=== PATIENT | male | born 1950 | race Caucasian/White ===

== ENCOUNTER 2021-02-17 10:17 | Outpatient (CLI) | payer MEDICARE, BC, SELFPAY ==
[2021-02-17 12:21] LABS: PSA,Total - Annual Screen 1.36 ng/mL (0.00-4.00)
== END 2021-02-17 23:59 | disposition short-term general hospital (02) ==
LOC: LAB 10:30
PROVIDERS: PCP Family Medicine; Visit Provider Urology
DX: Z12.5 Encounter for screening for malignant neoplasm of prostate (principal)
CPT/HCPCS: 36415; 84153; G0103

== ENCOUNTER → 2022-07-20 | Outpatient (CLI) | payer MEDICARE, BC, SELFPAY ==
--- NOTE | 2022-07-20 12:49 | CT_ITS ---
STUDY: CT ABDOMEN AND PELVIS WITHOUT CONTRAST REASON FOR EXAM: Male, 71 years old. CALCULUS OF URETER RADIATION DOSAGE (If Supplied By Facility): CTDIvol = ( 11.13 ) mGy, DLP = ( 512.27 ) mGycm TECHNIQUE: Transaxial images were obtained from the dome of the diaphragm to the symphysis pubis without oral contrast, and without intravenous contrast. Sagittal and coronal images were reconstructed. Individualized dose optimization techniques were used for this CT. COMPARISON: None. FINDINGS: Mild increased interstitial markings at the lung bases suggestive of linear atelectasis and/or scarring. Coronary artery calcification. Normal liver. Normal gallbladder and extrahepatic biliary system. Normal spleen. Normal pancreas. Normal bilateral adrenal glands. Normal right kidney. Questionable tiny calculus at the right ureterovesical junction. Normal left kidney. Normal visualized stomach. Normal small intestine. There are multiple colonic diverticula consistent with diverticulosis. The appendix is visualized and appears normal. There is diffuse atherosclerotic calcification of the abdominal aorta and its major visceral branches, without a demonstrated aneurysm. Normal inferior vena cava. Nonspecific increased markings in the mesenteric fat at the level of the root of the mesentery. Tiny lymph nodes are seen. Normal urinary bladder. There is enlargement of the prostate gland. It measures 3.7 cm x 4.7 cm. Central prostatic calcifications are seen. Normal abdominal wall. There are diffuse degenerative changes of the visualized lumbar spine. CT/Abdomen/Pelvis without Cont IMPRESSION: Questionable tiny calculus at the right ureterovesical junction. Sigmoid diverticulosis. Increased markings within the mesenteric fat at the level of the root of the mesentery. This is nonspecific. Electronically Signed: Emil Corona MD at 13:35 EDT ,
== END | disposition home or self-care (01) ==
LOC: CT 12:43
PROVIDERS: PCP Family Medicine; Referring Provider Urology; Visit Provider Urology
DX: N20.1 Calculus of ureter (principal)
CPT/HCPCS: 74176

== ENCOUNTER → 2022-07-24 | Outpatient (CLI) | payer MEDICARE, BC, SELFPAY | END | disposition home or self-care (01) | PROVIDERS: PCP Family Medicine; Visit Provider Urology | DX: Z87.442 Personal history of urinary calculi (principal) | CPT/HCPCS: 82360 ==

== ENCOUNTER → 2023-07-17 | Outpatient (CLI) | payer MEDICARE, BC, SELFPAY ==
[2023-07-17 11:37] LABS: PSA,Total - Annual Screen 1.53 ng/mL (0.00-4.00)
== END | disposition home or self-care (01) ==
PROVIDERS: PCP Family Medicine; Referring Provider Urology; Visit Provider Urology
DX: Z12.5 Encounter for screening for malignant neoplasm of prostate (principal)
CPT/HCPCS: 36415; 84153; G0103

== ENCOUNTER → 2024-07-16 | Outpatient (CLI) | payer MEDICARE, BC, SELFPAY ==
--- NOTE | 2024-07-16 13:17 | RAD_ITS ---
PROCEDURE: CERV SPINE 2 OR 3 VIEWS 07/16/2024 REASON FOR EXAM: SPONDYLOSIS WITHOUT MYELOPATHY OR RADICULOPATHY TECHNIQUE: 2 views of the cervical spine. COMPARISON: None. FINDINGS: There are no compression fractures or subluxations. There is reversal of the normal cervical lordosis. There is degenerative disc disease, C3-4 through C6-7 with narrowing of the disc spaces and marginal osteophytes. There is no significant facet arthropathy or spondylolisthesis. The paravertebral soft tissues are unremarkable. RAD/Cerv Spine 2 or 3 Views IMPRESSION: Mild multilevel degenerative disc disease with cervical spasm. Reading Location: [place] [id number]
== END | disposition home or self-care (01) ==
LOC: RAD 13:16
PROVIDERS: PCP Family Medicine; Referring Provider Anesthesiology Pain Medicine; Visit Provider Anesthesiology Pain Medicine
DX: M47.812 Spondylosis without myelopathy or radiculopathy, cervical region (principal)
CPT/HCPCS: 72040

== ENCOUNTER → 2024-07-17 | Outpatient (CLI) | payer MEDICARE, BC, SELFPAY ==
[2024-07-17 13:15] LABS: PSA,Total - Annual Screen 1.42 ng/mL (0.02-4.00)
== END | disposition home or self-care (01) ==
LOC: LAB 11:40
PROVIDERS: PCP Family Medicine; Referring Provider Nurse Practitioner; Visit Provider Nurse Practitioner
DX: Z12.5 Encounter for screening for malignant neoplasm of prostate (principal)
CPT/HCPCS: 36415; 84153; G0103

== ENCOUNTER → 2024-09-19 | Outpatient (CLI) | payer MEDICARE, BC, SELFPAY ==
--- NOTE | 2024-09-19 09:42 | MRI_ITS ---
PROCEDURE: SPINE CERVICAL (ROUTINE) 09/19/2024 REASON FOR EXAM: PAIN, KYPHOSIS WORSENING X10 WEEKS TECHNIQUE: SPINE CERVICAL (ROUTINE) Multiplanar and multisequence images were obtained without IV contrast administration. FINDINGS: Normal cervical alignment. Normal vertebral body height. No compression deformity or subluxation. No marrow abnormality. No marrow edema. No paravertebral mass lesion. Unfortunately, the T2 weighted axial images C2-3 is unremarkable. At C3-4, there is no central or foraminal stenosis. At C4-5, there is mild left C5 foraminal narrowing from uncinate spurring. At C5-6, there is no central stenosis. At C6-7, bilateral foraminal stenosis from uncinate spurring is present C7-T1 is unremarkable MRI/Spine Cervical (Routine) IMPRESSION: T2 weighted images limited by artifact. Mild degenerative changes with foramin al narrowing. No spinal cord abnormality. Reading [facility]
== END | disposition home or self-care (01) ==
LOC: MRI 09:38
PROVIDERS: PCP Family Medicine; Referring Provider Student in an Organized Health Care Education/Training Program; Visit Provider Student in an Organized Health Care Education/Training Program
DX: M54.2 Cervicalgia (principal); M40.202 Unspecified kyphosis, cervical region
CPT/HCPCS: 72141

== ENCOUNTER 2024-09-30 10:15 | Outpatient (RCR) | payer MEDICARE, BC, SELFPAY ==
[2024-09-23 10:18] VITALS: BP 146/78; PULSE 57; RESP 18; TEMP 36.4; BMI 29.7
--- NOTE | 2024-09-23 13:13 | HP.PCM_ITS ---
History of Present Illness Date of Service: 09/23/24 [facility], [facility] Medical History (Updated 09/23/24 @ 13:[address] Alpesh Echavarria MD) Non-pressure chronic ulcer of buttock with fat layer exposed Home Medications Medication Instructions Recorded Last Taken Type aspirin 81 mg tablet 81 mg PO QDAY 09/17/24 Unkno wn History atorvastatin 80 mg tablet (Lipitor) 80 mg PO QDAY 09/05 04/29 Unknown History bumetanide 1 mg tablet 1 mg PO BID 09/17/24 Unknown History cephalexin 250 mg capsule 250 mg PO BID 09/17/24 Unkno wn History clopidogrel 75 mg tablet (Plavix) 75 mg PO QDAY Unknown History fenofibrate 160 mg tablet 160 mg PO QDAY 09/17/24 Unkn own History mexiletine 150 mg capsule 450 mg PO Q12H 09/17/24 Unkn own History niacin 50 mg tablet 50 mg PO QDAY 09/17/24 Unkno wn History omeprazole magnesium 20 mg 20 mg PO QDAY 09/17/24 Unkn own History capsule,delayed release sotalol 80 mg tablet 80 mg PO BID 09/17/24 Unknow n History tamsulosin 0.4 mg capsule (Flomax) 0.4 mg PO QDAY 09/05 04/29 Unknown History Allergy/AdvReac Type Severity Reaction Status Date / Time No Known Allergies Allergy Unverified 09/17/24 13:32 Social History (Updated 09/17/24 @ 13:43 by Florina Warren) Smoking Status: Former smoker alcohol intake: current alcohol intake frequency: a few times a week Alcohol type: beer substance use type: does not use Vital Signs Vital Signs Vital Signs: 09/23/24 10:18 Temperature 97.5 F L Temperature Source Temporal Pulse Rate 57 L Respiratory Rate 18 Blood Pressure 146/78 H Blood Pressure Mean 100 Blood Pressure Source Monitor Blood Pressure Position Sitting Blood Pressure Location Left Arm Oxygen Delivery Method Room Air Weight Weight: 168 lb Body Mass Index (BMI) 29.7 Debridement Note Debridement Note Post-Debridement Measurements and Additional Note: Post-Debridement Measurements/Treatment WC - Nurse 1 - General Ulcer Assessment Start: 09/23/24 10:15 Freq: Status: Active Protocol: KAREEM Activity Type Activity Date Activity User E-sign Co-sign Detail Recorded Client Recorded Date Recorded By Document 09/23/24 10:18 [id number] 09/23/24 10:35 09/23/24 10:18 WC - Today's Visit Information Type of service Initial Visit Arrival Mode Ambulatory Patient Identification Verified (Name & Yes ) Finger Stick Blood Sugar(mg/dl) (if 125 indicated): Blood Sugar Stated by Patient Height and Weight Height 5 ft 3 in Weight 168 lb Weight in Pounds 168.0 lbs Body Mass Index (BMI) 29.7 BMI Classification Overweight Vital Signs Temperature (97.8 F-99.1 F) 97.5 F L Temperature Source Temporal Pulse Rate (60-100) 57 L Pulse Location Monitor Respiratory Rate (12-18) 18 Respiratory rate source Observation Oxygen Delivery Method Room Air Blood Pressure (90/60-120/80) 146/78 H Blood Pressure Mean 100 Source Monitor Position Sitting Blood Pressure Location Left Arm History Since Last Visit- (Skip if this is Patient's initial visit) Left Footwear Regular Shoe Right Footwear Regular Shoe Pain Scale: 0-10 Numeric Is Patient Pain Free? No R BUTTOCK -Description Sharp,Aching -Alleviating Factors/Interventions Medication, Medicate when due Communication Assessment Preferred language Greek Steam Shovel Operating Engineer Required No Able to Read Yes Able to Write Yes Communication Tools None Right Hearing Abillity Normal Left Hearing Abillity Normal Visual Assistive Devices None Teaching Assessment Preferences Verbal,Written, Demonstration Barriers to Learning None Readiness To Learn Excellent Willingness to Engage in Self Management High Activies Readiness to Engage in Self Management High Activities Anxiety Level Calm Cooperation Cooperative Perception Coherent Interest in Health Problem Asks Questions Education Importance Acknowledges Need Does Patient Smoke tobacco or other No substances Smoking Status Former smoker Is Patient Diabetic Yes Functional Assessment Recent Decline in Ability to Perform Denies Any Declines Culture/Oriental Orthodox/Operater Cultural/Oriental Orthodox Needs that may affect No Treatment Plan Would you allow our hospital spray booth operator to No meet you for the purpose of spiritual/ emotional support? Operater to contact place of alevism No WC - Nurse 1 - General Ulcer Measurement Start: 09/23/24 10:15 Freq: Status: Active Protocol: Activity Type Activity Date Activity User E-sign Co-sign Detail Recorded Client Recorded Date Recorded By Document 09/23/24 10:18 [id number] 09/23/24 10:35 09/23/24 10:18 Wound Center Nurse 1 #1 R BUTTOCK -Current Size (cm) - Length 0.1 -Current Size (cm) - Width 0.1 -Current Size (cm) - Depth 0 -Total Square Cm 0.01 -Date of Last Picture (Recall this 09/23/24 field) -Exudate Amt None Present -Texture (Letha-wound Skin Appearance) Assessed -Moisture (Letha-wound Skin Appearance) Assessed,Dry/ Scaly -Color (Letha-wound Skin Appearance) Assessed -Temperature (Letha-wound Skin No Abnormality Appearance) (Pt Warm) -Tenderness on Palpation (Letha-wound No Skin Appearance) -Ulcer Cleansing Rinsed/ Irrigated with Saline -Foul Odor after Cleansing No -Anesthetic Used 5% Lidocaine Gel - Nurse 2 - General Ulcer CM Notes Start: 09/23/24 10:15 Freq: Status: Active Protocol: Activity Type Activity Date Activity User E-sign Co-sign Detail Recorded Client Recorded Date Recorded By Document 09/23/24 11:07 [facility] [id number] 09/23/24 11:19 [facility] 09/23/24 11:07 Wound Center Nurse 2 -Time 11:10 -Correct Patient Yes -Correct Side, Site, Position Yes -Correct Procedure Yes -Procedure Performed Yes -Type of Procedure Debridement -Clinical Debridement Subcutaneous -Tissue Removed Subcutaneous -Post Debridement (cm) - Length 0.3 -Post Debridement (cm) - Width 0.2 -Post Debridement (cm) - Depth 0.2 -Total Square (Post) (cm) 0.06 -Area of Debridement (cm) - Length 0.3 -Area of Debridement (cm) - Width 0.2 -Total Square (Area) (cm) 0.06 -Tunneling No -Undermining/Tunneling No -Circular Undermining No -Wound/Ulcer Outcome Not Healed -Ulcer Cleansing Rinsed/ Irrigated with Saline -Bleeding Controlled with Pressure -Treatment Response Procedure Tolerated Well -Debridement - Subq, 1st 20sq cm Yes Pain Scale: 0-10 Numeric Is Patient Pain Free? Yes - Nurse 3 - General Ulcer D/C NN Start: 09/23/24 10:15 Freq: Status: Active Protocol: Activity Type Activity Date Activity User E-sign Co-sign Detail Recorded Client Recorded Date Recorded By Document 09/23/24 11:30 RB [id number] 09/23/24 11:31 RB 09/23/24 11:30 Wound Care Center Nurse 3 #1 R BUTTOCK -Ulcer Cleansing Rinsed/ Irrigated with Saline -Primary Dressing Applied C Hydrogel, Silicone Border Foam 4x4 -Hydrogel 1 -Silicone Border Foam 4x4 3 Treatment Response Procedure Tolerated Well Pain Scale: 0-10 Numeric Is Patient Pain Free? Yes WC - Visit Discharge Discharge Condition Stable Ambulatory Status Ambulatory Transportation Private Auto Medication Reconcilliation completed & No provided to patient/care provider Clinical Summary of Care Provided Yes Assessment/Plan Assessment/Plan (1) Non-pressure chronic ulcer of buttock with fat layer exposed: CODE(S): L98.412 - Non-pressure chronic ulcer of buttock with fat layer exposed
--- NOTE | 2024-09-24 12:05 | WC ---
PHOTO-RIGHT BUTTOCK 09/23/24
--- NOTE | 2024-09-25 11:25 | HP.PCM_ITS ---
History of Present Illness Date of Service: 09/23/24 Chief Complaint: Wound of the wound of the right upper, medial buttock History of Wound: This is a 74-year-old male who presented with an open ulceration on the medial aspect of the right upper buttock. The ulceration had been present for several months. According to the patient, it intermittently drains, though the patient is vague about the nature of the drainage. It intermittently forms a scab, which subsequently results in further drainage. The patient claims that the site is painful. The patient has been treated with topical antifungal agents as well as mupirocin 2% ointment topically. The patient is known to be diabetic. He suffers from multiple pre-existing medical problems, including diabetes mellitus, coronary artery disease, hyperlipidemia, hypertension, hypothyroidism, and chronic kidney disease. He is not currently a smoker. He claims that his diabetes is well-controlled, and he is not on insulin. 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 Home Medications Medication Instructions Recorded Last Taken Type aspirin 81 mg tablet 81 mg PO QDAY 09/17/24 Unkno wn History atorvastatin 80 mg tablet (Lipitor) 80 mg PO QDAY 09/05 04/29 Unknown History bumetanide 1 mg tablet 1 mg PO BID 09/17/24 Unknown History cephalexin 250 mg capsule 250 mg PO BID 09/17/24 Unkno wn History clopidogrel 75 mg tablet (Plavix) 75 mg PO QDAY Unknown History fenofibrate 160 mg tablet 160 mg PO QDAY 09/17/24 Unkn own History mexiletine 150 mg capsule 450 mg PO Q12H 09/17/24 Unkn own History niacin 50 mg tablet 50 mg PO QDAY 09/17/24 Unkno wn History omeprazole magnesium 20 mg 20 mg PO QDAY 09/17/24 Unkn own History capsule,delayed release sotalol 80 mg tablet 80 mg PO BID 09/17/24 Unknow n History tamsulosin 0.4 mg capsule (Flomax) 0.4 mg PO QDAY 09/05 04/29 Unknown History Allergy/AdvReac Type Severity Reaction Status Date / Time No Known Allergies Allergy Unverified 09/17/24 13:32 Surgical History History of coronary artery bypass graft History of heart artery stent Social History Smoking Status: Former smoker alcohol intake: current alcohol intake frequency: a few times a week Alcohol type: beer substance use type: does not use Vital Signs Vital Signs Vital Signs: Weight Weight: 168 lb Body Mass Index (BMI) 29.7 Physical Exam Const alert, oriented x3, no apparent distress, average body habitus, no limitations and well nourished Constitutional Narrative: The patient's BMI is 29.8. General Appearance: cooperative, comfortable and well developed Orientation / Consciousness: awake, oriented to person, oriented to place and oriented to time Exam Limitations: no limitations HEENT normocephalic and head/scalp atraumatic Head and Scalp: normal to inspection, normocephalic and atraumatic Face and Sinus: normal facial exam Nose: external nose normal External Ear: external ears normal Eyes PERRL and EOMs intact bilaterally General Eye: normal appearance of both eyes Resp normal respiratory effort, normal air movement, no retractions and no use of accessory muscles Effort and Inspection: able to speak in complete sentences Extremity no calf tenderness General Extremity: Negative for clubbing or cyanosis Skin Wound Narrative: An open ulceration is noted on the patient's right upper, medial buttock. It is full-thickness in nature, extending through all layers of the dermis and into subcutaneous tissues. With a suspicion of possible pilonidal sinus origins, or a perianal fistula opening, a metal probe was used to gently probe the ulceration to determine whether there appeared to be a tract extending in any direction, which would support the suspected diagnosis. However, no such tract was apparent. The base of the ulceration was noted to be pink, with a moderate amount of slough and devitalized tissue. Dimensions are documented elsewhere. There is no sign of infection or cellulitis. Neuro oriented x3, CN's II-XII intact bilaterally, moves all extremities, no focal motor deficits and no sensory deficits noted Sensorium / Orientation: awake, alert, oriented to person, oriented to place and oriented to time Speech: speech normal Psych Appearance: grossly normal and appropriate Attitude: calm Activity / Motor Behavior: appropriate eye contact Speech: normal speech Mood & Affect: euthymic mood Thought Process: normal thought process Thought Content: normal thought content Attention / Concentration: attention grossly intact Debridement Note Debridement Note Wound debrided: Right upper, medial buttock ulceration Laterality: Right Type of Debridement: Excisional debridement Anesthesia Used: 5% Lidocaine Gel Depth: Down to and including healthy tissue and in the subcutaneous layer Percentage of wound debrided: 100 Instrument Used: 3mm curette Tissue Removed: Slough and nonviable tissue Severity: Fat Layer Exposed Amount of bleeding with debridement: Mild Bleeding Controlled with: Compression and gauze Patient tolerated procedure: Patient tolerated procedure well Post-Debridement Measurements and Additional Note: Post-Debridement Measurements/Treatment - Nurse 1 - General Ulcer Assessment Start: 09/23/24 10:15 Freq: Status: Active Protocol: KAREEM Activity Type Activity Date Activity User E-sign Co-sign Detail Recorded Client Recorded Date Recorded By Document 09/23/24 10:18 DIDI [id number] 09/23/24 10:35 KW 09/23/24 10:18 - Today's Visit Information Type of service Initial Visit Arrival Mode Ambulatory Patient Identification Verified (Name & Yes ) Finger Stick Blood Sugar(mg/dl) (if 125 indicated): Blood Sugar Stated by Patient Height and Weight Height 5 ft 3 in Weight 168 lb Weight in Pounds 168.0 lbs Body Mass Index (BMI) 29.7 BMI Classification Overweight Vital Signs Temperature (97.8 F-99.1 F) 97.5 F L Temperature Source Temporal Pulse Rate (60-100) 57 L Pulse Location Monitor Respiratory Rate (12-18) 18 Respiratory rate source Observation Oxygen Delivery Method Room Air Blood Pressure (90/60-120/80) 146/78 H Blood Pressure Mean 100 Source Monitor Position Sitting Blood Pressure Location Left Arm History Since Last Visit- (Skip if this is Patient's initial visit) Left Footwear Regular Shoe Right Footwear Regular Shoe Pain Scale: 0-10 Numeric Is Patient Pain Free? No R BUTTOCK -Description Sharp,Aching -Alleviating Factors/Interventions Medication, Medicate when due Communication Assessment Preferred language Arabic Adolescent Medicine Specialist Required No Able to Read Yes Able to Write Yes Communication Tools None Right Hearing Abillity Normal Left Hearing Abillity Normal Visual Assistive Devices None Teaching Assessment Preferences Verbal,Written, Demonstration Barriers to Learning None Readiness To Learn Excellent Willingness to Engage in Self Management High Activies Readiness to Engage in Self Management High Activities Anxiety Level Calm Cooperation Cooperative Perception Coherent Interest in Health Problem Asks Questions Education Importance Acknowledges Need Does Patient Smoke tobacco or other No substances Smoking Status Former smoker Is Patient Diabetic Yes Functional Assessment Recent Decline in Ability to Perform Denies Any Declines Culture/Adventist/Full Stack Python Developer Cultural/Adventist Needs that may affect No Treatment Plan Would you allow our hospital inbound ingredient logistics specialist to No meet you for the purpose of spiritual/ emotional support? Full Stack Python Developer to contact place of gnosticist No WC - Nurse 1 - General Ulcer Measurement Start: 09/23/24 10:15 Freq: Status: Active Protocol: Activity Type Activity Date Activity User E-sign Co-sign Detail Recorded Client Recorded Date Recorded By Document 09/23/24 10:18 [id number] 09/23/24 10:35 09/23/24 10:18 Wound Center Nurse 1 #1 R BUTTOCK -Current Size (cm) - Length 0.1 -Current Size (cm) - Width 0.1 -Current Size (cm) - Depth 0 -Total Square Cm 0.01 -Date of Last Picture (Recall this 09/23/24 field) -Exudate Amt None Present -Texture (Letha-wound Skin Appearance) Assessed -Moisture (Letha-wound Skin Appearance) Assessed,Dry/ Scaly -Color (Letha-wound Skin Appearance) Assessed -Temperature (Letha-wound Skin No Abnormality Appearance) (Pt Warm) -Tenderness on Palpation (Letha-wound No Skin Appearance) -Ulcer Cleansing Rinsed/ Irrigated with Saline -Foul Odor after Cleansing No -Anesthetic Used 5% Lidocaine Gel - Nurse 2 - General Ulcer CM Notes Start: 09/23/24 10:15 Freq: Status: Active Protocol: Activity Type Activity Date Activity User E-sign Co-sign Detail Recorded Client Recorded Date Recorded By Document 09/23/24 11:07 [facility] [id number] 09/23/24 11:19 [facility] 09/23/24 11:07 Wound Center Nurse 2 -Time 11:10 -Correct Patient Yes -Correct Side, Site, Position Yes -Correct Procedure Yes -Procedure Performed Yes -Type of Procedure Debridement -Clinical Debridement Subcutaneous -Tissue Removed Subcutaneous -Post Debridement (cm) - Length 0.3 -Post Debridement (cm) - Width 0.2 -Post Debridement (cm) - Depth 0.2 -Total Square (Post) (cm) 0.06 -Area of Debridement (cm) - Length 0.3 -Area of Debridement (cm) - Width 0.2 -Total Square (Area) (cm) 0.06 -Tunneling No -Undermining/Tunneling No -Circular Undermining No -Wound/Ulcer Outcome Not Healed -Ulcer Cleansing Rinsed/ Irrigated with Saline -Bleeding Controlled with Pressure -Treatment Response Procedure Tolerated Well -Debridement - Subq, 1st 20sq cm Yes Pain Scale: 0-10 Numeric Is Patient Pain Free? Yes - Nurse 3 - General Ulcer D/C NN Start: 09/23/24 10:15 Freq: Status: Active Protocol: Activity Type Activity Date Activity User E-sign Co-sign Detail Recorded Client Recorded Date Recorded By Document 09/23/24 11:30 RB [id number] 09/23/24 11:31 RB 09/23/24 11:30 Wound Care Center Nurse 3 #1 R BUTTOCK -Ulcer Cleansing Rinsed/ Irrigated with Saline -Primary Dressing Applied C Hydrogel, Silicone Border Foam 4x4 -Hydrogel 1 -Silicone Border Foam 4x4 3 Treatment Response Procedure Tolerated Well Pain Scale: 0-10 Numeric Is Patient Pain Free? Yes WC - Visit Discharge Discharge Condition Stable Ambulatory Status Ambulatory Transportation Private Auto Medication Reconcilliation completed & No provided to patient/care provider Clinical Summary of Care Provided Yes Charges/Coding Multi Select Codes Visit Charges Office Visit/Consults: 56342 OV L4 New 45 min Integumentary Integumentary CPT Codes: 57687 Delia subq tissue 20 sq cm/< Assessment/Plan Assessment/Plan (1) Non-pressure chronic ulcer of buttock with fat layer exposed: CODE(S): L98.412 - Non-pressure chronic ulcer of buttock with fat layer exposed (2) Type 2 diabetes mellitus: CODE(S): E11.9 - Type 2 diabetes mellitus without complications (3) History of heart artery stent: CODE(S): Z95.5 - Presence of coronary angioplasty implant and graft (4) S/P triple vessel bypass: CODE(S): Z95.1 - Presence of aortocoronary bypass graft (5) CKD stage 4 due to type 2 diabetes mellitus: CODE(S): E11.22 - Type 2 diabetes mellitus with diabetic chronic kidney disease; N18.4 - Chronic kidney disease, stage 4 (severe) (6) Hypothyroidism: CODE(S): E03.9 - Hypothyroidism, unspecified (7) Gout: CODE(S): M10.9 - Gout, unspecified (8) Hyperlipidemia: CODE(S): E78.5 - Hyperlipidemia, unspecified (9) Hypertension: CODE(S): I10 - Essential (primary) hypertension (10) History of coronary artery bypass graft: CODE(S): Z95.1 - Presence of aortocoronary bypass graft PLAN: Plan This is a 74-year-old male who presented with a small ulceration on the right upper, medial buttock. The patient suffers from multiple pre-existing medical problems, including diabetes, hypertension, hyperlipidemia, hypothyroidism, coronary artery disease, and chronic kidney disease. We have discussed optimization of the patient's glycemic control. We have also discussed nutritional optimization. Offloading measures have been discussed in detail. We are to implement the use of collagen hydrogel topically to the ulceration on a daily basis. The patient has been instructed in the appropriate means of application. Based upon the location of the ulceration, there are thoughts regarding the possible etiology of this somewhat unusual ulceration. It does not appear to be pressure related, though offloading measures are to be implemented. Other considerations include etiologies related to a pilonidal sinus or a perianal fistula. The position of the ulceration somewhat lateral to the midline suggests against a pilonidal sinus etiology. The perianal fistula is a consideration, though no tract was clearly identified. We will observe the status of the ulceration temporarily, and further evaluation will ensue based upon the patient's emerging clinical course. The patient is to return in 1 week for reevaluation. Total time: 48 minutes
[2024-09-30 10:18] VITALS: BP 143/78; PULSE 58; RESP 16; TEMP 36.4; BMI 29.7
--- NOTE | 2024-10-01 13:22 | WC ---
PHOTO-RIGHT BUTTOCK 09/30/24
--- NOTE | 2024-10-02 14:28 | PCM.WC.HP ---
History of Present Illness Date of Service: 09/30/24 Chief Complaint: Wound of the wound of the right upper, medial buttock History of Wound: This is a 74-year-old male who presented with an open ulceration on the medial aspect of the right upper buttock. The ulceration had been present for several months. According to the patient, it intermittently drained, though the patient was vague about the nature of the drainage. It intermittently formed a scab, which subsequently resulted in further drainage. The patient claimed that the site was painful. The patient had been treated with topical antifungal agents as well as mupirocin 2% ointment topically. The patient is known to be diabetic. He suffers from multiple pre-existing medical problems, including diabetes mellitus, coronary artery disease, hyperlipidemia, hypertension, hypothyroidism, and chronic kidney disease. He is not currently a smoker. He claims that his diabetes is well-controlled, and he is not on insulin. 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 Home Medications Medication Instructions Recorded Last Taken Type aspirin 81 mg tablet 81 mg PO QDAY 09/17/24 Unknown History atorvastatin 80 mg tablet (Lipitor) 80 mg PO QDAY 09/17/24 Unknown History bumetanide 1 mg tablet 1 mg PO BID 09/17/24 Unknown History cephalexin 250 mg capsule 250 mg PO BID 09/17/24 Unknown History clopidogrel 75 mg tablet (Plavix) 75 mg PO QDAY 09/17/24 Unknown History fenofibrate 160 mg tablet 160 mg PO QDAY 09/17/24 Unknown History mexiletine 150 mg capsule 450 mg PO Q12H 09/17/24 Unknown History niacin 50 mg tablet 50 mg PO QDAY 09/17/24 Unknown History omeprazole magnesium 20 mg 20 mg PO QDAY 09/17/24 Unknown History capsule,delayed release sotalol 80 mg tablet 80 mg PO BID 09/17/24 Unknown History tamsulosin 0.4 mg capsule (Flomax) 0.4 mg PO QDAY 09/17/24 Unknown History methocarbamol 500 mg tablet 500 mg PO TID PRN Pain/spasms #30 10/01/24 Unknown Rx tabs Allergy/AdvReac Type Severity Reaction Status Date / Time No Known Allergies Allergy Unverified 09/26/24 10:38 Surgical History History of coronary artery bypass graft History of heart artery stent Social History Smoking Status: Former smoker alcohol intake: current alcohol intake frequency: a few times a week Alcohol type: beer substance use type: does not use Vital Signs Vital Signs Vital Signs: Weight Weight: 168 lb Body Mass Index (BMI) 29.7 Physical Exam Const alert, oriented x3, no apparent distress, average body habitus, no limitations and well nourished Constitutional Narrative: The patient's BMI is 29.8. General Appearance: cooperative, comfortable and well developed Orientation / Consciousness: awake, oriented to person, oriented to place and oriented to time Exam Limitations: no limitations HEENT normocephalic and head/scalp atraumatic Head and Scalp: normal to inspection, normocephalic and atraumatic Face and Sinus: normal facial exam Nose: external nose normal External Ear: external ears normal Eyes PERRL and EOMs intact bilaterally General Eye: normal appearance of both eyes Resp normal respiratory effort, normal air movement, no retractions and no use of accessory muscles Effort and Inspection: able to speak in complete sentences Extremity no calf tenderness General Extremity: Negative for clubbing or cyanosis Skin Wound Narrative: An open ulceration persists on the patient's right upper, medial buttock. It is full-thickness in nature, extending through all layers of the dermis and into subcutaneous tissues. The ulceration was gently probed to ensure that there was no tract extending in any direction which could indicate the presence of a pilonidal sinus or perianal fistula. No such tract was apparent. The base of the ulceration was noted to be pink, with a moderate amount of slough and devitalized tissue. Dimensions are documented elsewhere. The ulceration appears to be smaller in size than noted 1 week prior. There is no sign of infection or cellulitis. Neuro oriented x3, CN's II-XII intact bilaterally, moves all extremities, no focal motor deficits and no sensory deficits noted Sensorium / Orientation: awake, alert, oriented to person, oriented to place and oriented to time Speech: speech normal Psych Appearance: grossly normal and appropriate Attitude: calm Activity / Motor Behavior: appropriate eye contact Speech: normal speech Mood & Affect: euthymic mood Thought Process: normal thought process Thought Content: normal thought content Attention / Concentration: attention grossly intact Debridement Note Debridement Note Wound debrided: Right upper, medial buttock ulceration Laterality: Right Type of Debridement: Excisional debridement Anesthesia Used: 5% Lidocaine Gel Depth: Down to and including healthy tissue and in the subcutaneous layer Percentage of wound debrided: 100 Instrument Used: 3mm curette Tissue Removed: Slough and nonviable tissue Severity: Fat Layer Exposed Amount of bleeding with debridement: Mild Bleeding Controlled with: Compression and gauze Patient tolerated procedure: Patient tolerated procedure well Post-Debridement Measurements and Additional Note: Post-Debridement Measurements/Treatment - Nurse 1 - General Ulcer Assessment Start: 09/23/24 10:15 Freq: Status: Active Protocol: KAREEM Activity Type Activity Date Activity User E-sign Co-sign Detail Recorded Client Recorded Date Recorded By Document 09/23/24 10:18 [id number] 09/23/24 10:35 Document 09/30/24 10:18 [facility] [id number] 09/30/24 10:21 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 ) Arrival Mode Ambulatory Ambulatory Transfer Assistance None Patient Identification Verified (Name & Yes Yes ) Patient Requires Transmission-Based No Precautions Finger Stick Blood Sugar(mg/dl) (if 125 indicated): Blood Sugar Stated by Patient Height and Weight Height 5 ft 3 in Weight 168 lb Weight in Pounds 168.0 lbs Body Mass Index (BMI) 29.7 29.7 BMI Classification Overweight Overweight Vital Signs Temperature (97.8 F-99.1 F) 97.5 F L 97.5 F L Temperature Source Temporal Temporal Pulse Rate (60-100) 57 L 58 L Pulse Location Monitor Monitor Respiratory Rate (12-18) 18 16 Respiratory rate source Observation Observation Oxygen Delivery Method Room Air Room Air Blood Pressure (90/60-120/80) 146/78 H 143/78 H Blood Pressure Mean 100 99 Source Monitor Monitor Position Sitting Sitting Blood Pressure Location Left Arm Left Arm History Since Last Visit- (Skip if this is Patient's initial visit) Have you changed medications since your No last visit? Any new allergies or adverse reactions No Had a fall/change in ADL's that may No increase risk of falls Signs or symptoms of abuse and/or No neglect since last visit Have you been in the hospital since your No last visit? Has dressing in place as prescribed Yes Has compression in place as prescribed N/A Has offloadiing in place as prescribed N/A Experienced any changes in pain level or No management Left Footwear Regular Shoe Regular Shoe Right Footwear Regular Shoe Regular Shoe Pain Scale: 0-10 Numeric Is Patient Pain Free? No Yes R BUTTOCK -Description Sharp,Aching -Alleviating Factors/Interventions Medication, Medicate when due Communication Assessment Preferred language Irish Loom Winder Tender Required No Able to Read Yes Able to Write Yes Communication Tools None Right Hearing Abillity Normal Left Hearing Abillity Normal Visual Assistive Devices None Teaching Assessment Preferences Verbal,Written, Demonstration Barriers to Learning None Readiness To Learn Excellent Willingness to Engage in Self Management High Activies Readiness to Engage in Self Management High Activities Anxiety Level Calm Cooperation Cooperative Perception Coherent Interest in Health Problem Asks Questions Education Importance Acknowledges Need Does Patient Smoke tobacco or other No substances Smoking Status Former smoker Is Patient Diabetic Yes Functional Assessment Recent Decline in Ability to Perform Denies Any Declines Culture/Protestant/Banbury Mixer Operator Cultural/Protestant Needs that may affect No Treatment Plan Would you allow our hospital natural gas plant technician to No meet you for the purpose of spiritual/ emotional support? Ban[place] Mixer Operator to contact place of church No WC - Nurse 1 - General Ulcer Measurement Start: 09/23/24 10:15 Freq: Status: Active Protocol: Activity Type Activity Date Activity User E-sign Co-sign Detail Recorded Client Recorded Date Recorded By Document 09/23/24 10:18 [id number] 09/23/24 10:35 Document 09/30/24 10:18 [facility] [id number] 09/30/24 10:21 [facility] 09/23/24 09/30/24 10:18 10:18 Wound Center Nurse 1 #1 R BUTTOCK -Combined with other wound No -Current Size (cm) - Length 0.1 0.1 -Current Size (cm) - Width 0.1 0.1 -Current Size (cm) - Depth 0 0.1 -Total Square Cm 0.01 0.01 -Date of Last Picture (Recall this 09/23/24 09/30/24 field) -Photo Taken Yes -Epithelialization Large 67-100% -Tunneling No -Undermining/Tunneling No -Circular Undermining No -Exudate Amt None Present -Texture (Letha-wound Skin Appearance) Assessed Assessed, Scarring -Moisture (Letha-wound Skin Appearance) Assessed,Dry/ Assessed,Dry/ Scaly Scaly -Color (Letha-wound Skin Appearance) Assessed Assessed -Temperature (Letha-wound Skin No Abnormality No Abnormality Appearance) (Pt Warm) (Pt Warm) -Tenderness on Palpation (Letha-wound No No Skin Appearance) -Ulcer Cleansing Rinsed/ Rinsed/ Irrigated with Irrigated with Saline Saline -Foul Odor after Cleansing No No -Anesthetic Used 5% Lidocaine 5% Lidocaine Gel Gel - Nurse 2 - General Ulcer CM Notes Start: 09/23/24 10:15 Freq: Status: Active Protocol: Activity Type Activity Date Activity User E-sign Co-sign Detail Recorded Client Recorded Date Recorded By Document 09/23/24 11:07 [facility] [id number] 09/23/24 11:19 [facility] Document 09/30/24 10:42 [id number] 09/30/24 10:44 DS 09/23/24 09/30/24 11:07 10:42 Wound Center Nurse 2 #1 R BUTTOCK -Time 11:10 10:42 -Correct Patient Yes Yes -Correct Side, Site, Position Yes Yes -Correct Procedure Yes Yes -Procedure Performed Yes Yes -Type of Procedure Debridement Debridement -Clinical Debridement Subcutaneous Subcutaneous -Tissue Removed Subcutaneous Subcutaneous -Post Debridement (cm) - Length 0.3 0.2 -Post Debridement (cm) - Width 0.2 0.3 -Post Debridement (cm) - Depth 0.2 0.1 -Total Square (Post) (cm) 0.06 0.06 -Area of Debridement (cm) - Length 0.3 0.2 -Area of Debridement (cm) - Width 0.2 0.3 -Total Square (Area) (cm) 0.06 0.06 -Tunneling No No -Undermining/Tunneling No No -Circular Undermining No No -Wound/Ulcer Outcome Not Healed Not Healed -Ulcer Cleansing Rinsed/ GAUZE Irrigated with Saline -Foul Odor after Cleansing No -Bioengineered Tissue No -Bleeding Controlled with Pressure Pressure -Treatment Response Procedure Procedure Tolerated Well Tolerated Well -Debridement - Subq, 1st 20sq cm Yes Yes Pain Scale: 0-10 Numeric Is Patient Pain Free? Yes Yes - Nurse 3 - General Ulcer D/C NN Start: 09/23/24 10:15 Freq: Status: Active Protocol: Activity Type Activity Date Activity User E-sign Co-sign Detail Recorded Client Recorded Date Recorded By Document 09/23/24 11:30 RB [id number] 09/23/24 11:31 RB Document 09/30/24 10:52 KW [id number] 09/30/24 10:53 KW 09/23/24 09/30/24 11:30 10:52 Wound Care Center Nurse 3 #1 R BUTTOCK -Ulcer Cleansing Rinsed/ Irrigated with Saline -Primary Dressing Applied C Hydrogel, Silicone Border Silicone Border Foam 6x6 Foam 4x4 -Other Dressing HYDROGEL -Hydrogel 1 -Silicone Border Foam 4x4 3 -Silicone Border Foam 6x6 1 Treatment Response Procedure Tolerated Well Pain Scale: 0-10 Numeric Is Patient Pain Free? Yes Yes WC - Visit Discharge Discharge Condition Stable Stable Ambulatory Status Ambulatory Ambulatory Transportation Private Auto Medication Reconcilliation completed & No No provided to patient/care provider Clinical Summary of Care Provided Yes Yes Charges/Coding Procedures Integumentary [id number]: [id number] Delia subq tissue 20 sq cm/< Assessment/Plan Assessment/Plan (1) Non-pressure chronic ulcer of buttock with fat layer exposed: CODE(S): L98.412 - Non-pressure chronic ulcer of buttock with fat layer exposed (2) Type 2 diabetes mellitus: CODE(S): E11.9 - Type 2 diabetes mellitus without complications (3) History of heart artery stent: CODE(S): Z95.5 - Presence of coronary angioplasty implant and graft (4) S/P triple vessel bypass: CODE(S): Z95.1 - Presence of aortocoronary bypass graft (5) CKD stage 4 due to type 2 diabetes mellitus: CODE(S): E11.22 - Type 2 diabetes mellitus with diabetic chronic kidney disease; N18.4 - Chronic kidney disease, stage 4 (severe) (6) Hypothyroidism: CODE(S): E03.9 - Hypothyroidism, unspecified (7) Gout: CODE(S): M10.9 - Gout, unspecified (8) Hyperlipidemia: CODE(S): E78.5 - Hyperlipidemia, unspecified (9) Hypertension: CODE(S): I10 - Essential (primary) hypertension (10) History of coronary artery bypass graft: CODE(S): Z95.1 - Presence of aortocoronary bypass graft PLAN: Plan This is a 74-year-old male who presented with a small ulceration on the right upper, medial buttock. The patient suffers from multiple pre-existing medical problems, including diabetes, hypertension, hyperlipidemia, hypothyroidism, coronary artery disease, and chronic kidney disease. We have discussed optimization of the patient's glycemic control. We have also discussed nutritional optimization. Offloading measures have been discussed in detail. We are to continue the use of collagen hydrogel topically to the ulceration on a daily basis. The patient has been instructed in the appropriate means of application. At this juncture, the ulceration does not appear to be related to a pilonidal sinus or perianal fistula. Offloading measures have been discussed and are to be continued. The patient is to return in 1 week for reevaluation. Total time: 24 minutes
== END 2024-10-05 23:59 | disposition home or self-care (01) ==
LOC: WC 10:15
PROVIDERS: PCP Family Medicine; Referring Provider Family Medicine; Visit Provider Surgery
DX: L98.412 Non-pressure chronic ulcer of buttock with fat layer exposed (principal); N18.4 Chronic kidney disease, stage 4 (severe); E11.22 Type 2 diabetes mellitus with diabetic chronic kidney disease; E03.9 Hypothyroidism, unspecified; E78.5 Hyperlipidemia, unspecified; I12.9 Hypertensive chronic kidney disease with stage 1 through stage 4 chronic kidney disease, or unspecified chronic kidney disease; Z95.5 Presence of coronary angioplasty implant and graft; Z87.891 Personal history of nicotine dependence; I25.10 Atherosclerotic heart disease of native coronary artery without angina pectoris; M10.9 Gout, unspecified; Z95.1 Presence of aortocoronary bypass graft
CPT/HCPCS: 11042; 99213; G0463

== ENCOUNTER 2024-10-07 10:18 | Outpatient (RCR) | payer MEDICARE, BC, SELFPAY ==
[2024-10-07 10:19] VITALS: BP 133/71; PULSE 56; RESP 18; TEMP 36.6
--- NOTE | 2024-10-09 09:22 | WC ---
PHOTO- RIGHT BUTTOCK 10/07/24
--- NOTE | 2024-10-09 14:54 | PCM.WC.HP ---
History of Present Illness Date of Service: 10/07/24 Chief Complaint: Wound of the right upper, medial buttock History of Wound: This is a 74-year-old male who presented with an open ulceration on the medial aspect of the right upper buttock. The ulceration had been present for several months. According to the patient, it intermittently drained, though the patient was vague about the nature of the drainage. It intermittently formed a scab, which subsequently resulted in further drainage. The patient claimed that the site was painful. The patient had been treated with topical antifungal agents as well as mupirocin 2% ointment topically. The patient is known to be diabetic. He suffers from multiple pre-existing medical problems, including diabetes mellitus, coronary artery disease, hyperlipidemia, hypertension, hypothyroidism, and chronic kidney disease. He is not currently a smoker. He claims that his diabetes is well-controlled, and he is not on insulin. 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 Home Medications ?Medication ?Instructions ?Recorded ?Last Taken ?Type aspirin 81 mg tablet 81 mg PO QDAY 09/17/24 Unknown History atorvastatin 80 mg tablet (Lipitor) 80 mg PO QDAY 09/17/24 Unknown History bumetanide 1 mg tablet 1 mg PO BID 09/17/24 Unknown History cephalexin 250 mg capsule 250 mg PO BID 09/17/24 Unknown History clopidogrel 75 mg tablet (Plavix) 75 mg PO QDAY 09/17/24 Unknown History fenofibrate 160 mg tablet 160 mg PO QDAY 09/17/24 Unknown History mexiletine 150 mg capsule 450 mg PO Q12H 09/17/24 Unknown History niacin 50 mg tablet 50 mg PO QDAY 09/17/24 Unknown History omeprazole magnesium 20 mg 20 mg PO QDAY 09/17/24 Unknown History capsule,delayed release sotalol 80 mg tablet 80 mg PO BID 09/17/24 Unknown History tamsulosin 0.4 mg capsule (Flomax) 0.4 mg PO QDAY 09/17/24 Unknown History methocarbamol 500 mg tablet 500 mg PO TID PRN Pain/spasms #30 10/01/24 Unknown Rx tabs Allergy/AdvReac Type Severity Reaction Status Date / Time No Known Allergies Allergy Unverified 09/26/24 10:38 Surgical History History of coronary artery bypass graft History of heart artery stent Social History Smoking Status: Former smoker alcohol intake: current alcohol intake frequency: a few times a week Alcohol type: beer substance use type: does not use Physical Exam Const alert, oriented x3, no apparent distress, average body habitus, no limitations and well nourished Constitutional Narrative: The patient's BMI is 29.8. General Appearance: cooperative, comfortable and well developed Orientation / Consciousness: awake, oriented to person, oriented to place and oriented to time Exam Limitations: no limitations HEENT normocephalic and head/scalp atraumatic Head and Scalp: normal to inspection, normocephalic and atraumatic Face and Sinus: normal facial exam Nose: external nose normal External Ear: external ears normal Eyes PERRL and EOMs intact bilaterally General Eye: normal appearance of both eyes Resp normal respiratory effort, normal air movement, no retractions and no use of accessory muscles Effort and Inspection: able to speak in complete sentences Extremity no calf tenderness General Extremity: Negative for clubbing or cyanosis Skin Wound Narrative: The open ulceration on the patient's right upper, medial buttock is now completely healed and epithelialized. There is no sign of infection or cellulitis. Neuro oriented x3, CN's II-XII intact bilaterally, moves all extremities, no focal motor deficits and no sensory deficits noted Sensorium / Orientation: awake, alert, oriented to person, oriented to place and oriented to time Speech: speech normal Psych Appearance: grossly normal and appropriate Attitude: calm Activity / Motor Behavior: appropriate eye contact Speech: normal speech Mood & Affect: euthymic mood Thought Process: normal thought process Thought Content: normal thought content Attention / Concentration: attention grossly intact Debridement Note Debridement Note No debridement was completed: No debridement was completed today (The patient's right medial buttock wound is completely healed and epithelialized.) Post-Debridement Measurements and Additional Note: Post-Debridement Measurements/Treatment DARBY - Nurse 1 - General Ulcer Assessment Start: 10/07/24 10:19 Freq: Status: Active Protocol: WC.LOWEXT Activity Type Activity Date Activity User E-sign Co-sign Detail Recorded Client Recorded Date Recorded By Document 10/07/24 10:19 [email or web address] [id number] 10/07/24 10:24 10/07/24 10:19 - Today's Visit Information Type of service Follow-up Visit (Physician/[facility] ) Arrival Mode Ambulatory Patient Identification Verified (Name & Yes ) Vital Signs Temperature (97.8 F-99.1 F) 97.8 F Temperature Source Temporal Pulse Rate (60-100) 56 L Pulse Location Monitor Respiratory Rate (12-18) 18 Respiratory rate source Ausculation Oxygen Delivery Method Room Air Blood Pressure (90/60-120/80) 133/71 H Blood Pressure Mean 91 Source Monitor Position Sitting Blood Pressure Location Left Arm History Since Last Visit- (Skip if this is Patient's initial visit) Have you changed medications since your No last visit? Any new allergies or adverse reactions No Had a fall/change in ADL's that may No increase risk of falls Signs or symptoms of abuse and/or No neglect since last visit Have you been in the hospital since your No last visit? Has dressing in place as prescribed Yes Has compression in place as prescribed N/A Has offloadiing in place as prescribed N/A Experienced any changes in pain level or No management Left Footwear Regular Shoe Right Footwear Regular Shoe Pain Scale: 0-10 Numeric Is Patient Pain Free? Yes - Nurse 1 - General Ulcer Measurement Start: 10/07/24 10:19 Freq: Status: Active Protocol: Activity Type Activity Date Activity User E-sign Co-sign Detail Recorded Client Recorded Date Recorded By Document 10/07/24 10:19 [email or web address] [id number] 10/07/24 10:24 10/07/24 10:19 Wound Center Nurse 1 #1 R BUTTOCK -Current Size (cm) - Length 0.1 -Current Size (cm) - Width 0.1 -Current Size (cm) - Depth 0 -Total Square Cm 0.01 -Date of Last Picture (Recall this 10/07/24 field) -Epithelialization Large 67-100% -Wound Margin Indistinct, Non -Visible -Granulation Amt None Present (0 %) -Texture (Letha-wound Skin Appearance) Assessed -Moisture (Letha-wound Skin Appearance) Assessed -Color (Letha-wound Skin Appearance) Assessed -Temperature (Letha-wound Skin No Abnormality Appearance) (Pt Warm) -Tenderness on Palpation (Letha-wound No Skin Appearance) -Ulcer Cleansing Soap and Water -Foul Odor after Cleansing No -Anesthetic Used 5% Lidocaine Gel - Nurse 2 - General Ulcer CM Notes Start: 10/07/24 10:19 Freq: Status: Active Protocol: Activity Type Activity Date Activity User E-sign Co-sign Detail Recorded Client Recorded Date Recorded By Document 10/07/24 10:55 [id number] 10/07/24 10:57 10/07/24 10:55 Wound Center Nurse 2 -Correct Patient Yes -Correct Side, Site, Position No -Correct Procedure No -Procedure Performed No -Post Debridement (cm) - Length 0 -Post Debridement (cm) - Width 0 -Post Debridement (cm) - Depth 0 -Total Square (Post) (cm) 0 -Area of Debridement (cm) - Length 0 -Area of Debridement (cm) - Width 0 -Total Square (Area) (cm) 0 -Wound/Ulcer Outcome Healed- Epithelialized Pain Scale: 0-10 Numeric Is Patient Pain Free? Yes - Nurse 3 - General Ulcer D/C NN Start: 10/07/24 10:19 Freq: Status: Active Protocol: Activity Type Activity Date Activity User E-sign Co-sign Detail Recorded Client Recorded Date Recorded By Document 10/07/24 10:57 [id number] 10/07/24 10:57 10/07/24 10:57 Wound Care Center Nurse 3 #1 R BUTTOCK -Ulcer Cleansing Rinsed/ Irrigated with Saline -Foul Odor after Cleansing No -Primary Dressing Applied Silicone Border Foam 4x4 -Silicone Border Foam 4x4 1 Pain Scale: 0-10 Numeric Is Patient Pain Free? Yes - Visit Discharge Discharge Condition Stable Ambulatory Status Ambulatory Transportation Private Auto Medication Reconcilliation completed & Yes provided to patient/care provider Clinical Summary of Care Provided Yes Charges/Coding Visit Charges Office Visits / Consults: [id number] OV L3 Est 20min Assessment/Plan Assessment/Plan (1) Non-pressure chronic ulcer of buttock with fat layer exposed: CODE(S): L98.412 - Non-pressure chronic ulcer of buttock with fat layer exposed (2) Type 2 diabetes mellitus: CODE(S): E11.9 - Type 2 diabetes mellitus without complications (3) History of heart artery stent: CODE(S): Z95.5 - Presence of coronary angioplasty implant and graft (4) S/P triple vessel bypass: CODE(S): Z95.1 - Presence of aortocoronary bypass graft (5) CKD stage 4 due to type 2 diabetes mellitus: CODE(S): E11.22 - Type 2 diabetes mellitus with diabetic chronic kidney disease; N18.4 - Chronic kidney disease, stage 4 (severe) (6) Hypothyroidism: CODE(S): E03.9 - Hypothyroidism, unspecified (7) Gout: CODE(S): M10.9 - Gout, unspecified (8) Hyperlipidemia: CODE(S): E78.5 - Hyperlipidemia, unspecified (9) Hypertension: CODE(S): I10 - Essential (primary) hypertension (10) History of coronary artery bypass graft: CODE(S): Z95.1 - Presence of aortocoronary bypass graft PLAN: Plan This is a 74-year-old male who presented with a small ulceration on the right upper, medial buttock. The patient suffers from multiple pre-existing medical problems, including diabetes, hypertension, hyperlipidemia, hypothyroidism, coronary artery disease, and chronic kidney disease. As of today's visit, the patient's right medial buttock ulceration is completely healed and epithelialized. Therefore, the patient is to be discharged, and will follow-up henceforth on an as needed basis. The patient has been encouraged to keep the area clean and dry, and to avoid inadvertent trauma. He has been advised to pad and protect the area for 10 to 14 days, using a dry gauze dressing. Total time: 22 minutes
--- NOTE | 2024-11-03 11:52 | WC ---
received VM from pt. stating that he has a blister back on his leg and wanting to know if we can tell him what to put on it. pt was d/c 10/07/[address] Echavarria. Returned call and left VM stating that I cannot tell him what to place d/t not being a WC pt at this time and not knowing what the wound looks like. Informed him he could call the WC to make an appt. to be seen again.
== END 2024-11-04 15:45 | disposition home or self-care (01) ==
LOC: WC 10:18
PROVIDERS: PCP Family Medicine; Referring Provider Family Medicine; Visit Provider Surgery
DX: Z09 Encounter for follow-up examination after completed treatment for conditions other than malignant neoplasm (principal)
CPT/HCPCS: 99213; G0463